=== PATIENT | female | born 1950 | race Caucasian/White ===

== ENCOUNTER → 2017-03-15 | Outpatient (CLI) | payer MEDICARE ==
[2017-03-15 16:42] LABS: BASOPHILS % (AUTO) 1 % (0-2); EOSINOPHILS # (AUTO) 0.1 10^3uL; EOSINOPHILS % (AUTO) 2 % (0-4); LYMPHOCYTES # (AUTO) 1.4 X10^3; MEAN CORPUSCULAR HGB CONC 33.3 g/dL (31.0-37.0); MEAN CORPUSCULAR VOLUME 95 FL (80-100); MEAN PLATELET VOLUME 8.9 FL (6.0-9.5); MONOCYTES # (AUTO) 0.7 X10^3; MONOCYTES % (AUTO) 15 % (3-11); NEUTROPHILS # (AUTO) 2.7 X10^3; NEUTROPHILS % (AUTO) 55 % (51-67); PLATELET COUNT 266 10^3uL (150-450); WHITE BLOOD COUNT 4.98 10^3uL (4.0-11.0)
[2017-03-15 17:07] LABS: ALBUMIN 4.3 g/dL (3.4-5.0); ANION GAP 13.2 MEQ/L (3-15); CALCULATED IONIZED CALCIUM 4.2 mg/dL (3.8-4.6); TOTAL PROTEIN 7.1 g/dL (6.4-8.5)
[2017-03-15 17:14] LABS: ABSOLUTE RETIC # 24 10^3uL (22-82); MEAN CORPUSCULAR HEMOGLOBIN 31.7 PG (26.0-34.0)
== END ==
LOC: LAB 15:58
PROVIDERS: ATTEND Internal Medicine Hematology & Oncology
DX: R53.83 Other fatigue (principal); D72.819 Decreased white blood cell count, unspecified; D47.3 Essential (hemorrhagic) thrombocythemia
CPT/HCPCS: 36415; 80053; 84443; 85025; 85045; 85240; 85246; 85390; 85397; 85610; 85730; 86038

== ENCOUNTER → 2017-03-29 | Outpatient (CLI) | payer MEDICARE ==
[2017-03-29 16:40] LABS: BASOPHILS % (AUTO) 0 % (0-2); EOSINOPHILS # (AUTO) 0.1 10^3uL; EOSINOPHILS % (AUTO) 2 % (0-4); LYMPHOCYTES # (AUTO) 1.2 X10^3; MEAN PLATELET VOLUME 8.8 FL (6.0-9.5); MONOCYTES # (AUTO) 0.7 X10^3; MONOCYTES % (AUTO) 12 % (3-11); NEUTROPHILS % (AUTO) 66 % (51-67); PLATELET COUNT 286 10^3uL (150-450)
[2017-03-29 16:42] LABS: ABSOLUTE RETIC # 41 10^3uL (22-82); MEAN CORPUSCULAR HEMOGLOBIN 32.5 PG (26.0-34.0); MEAN CORPUSCULAR VOLUME 99 FL (80-100)
[2017-03-29 23:05] LABS: IRON 104 ug/dL (50-170); UNBOUND IRON CONTENT 223 ug/dl (126-382)
[2017-04-01 11:25] LABS: FACTOR XI 76 % (65-135)
== END ==
LOC: LAB 16:14
PROVIDERS: ATTEND Internal Medicine Hematology & Oncology
DX: D72.819 Decreased white blood cell count, unspecified (principal); R53.83 Other fatigue; D64.9 Anemia, unspecified
CPT/HCPCS: 36415; 82728; 83010; 83540; 83550; 83615; 85025; 85045; 85250; 85270